=== PATIENT | female | born 1950 | race African-American/Black ===

== ENCOUNTER 2022-05-15 13:13 | Emergency (ER) | payer MEDICARE, OTHER ==
[2022-05-15] MEDS ORDERED: Acetaminophen 500 MG TAB ONE (14:22)
[2022-05-15 16:05] LABS: Hemoglobin 13.5 g/dL (12.0-16.0); Mean Corpuscular Hemoglobin 30.1 pg (27.0-31.0); Mean Platelet Volume 5.9 fL (7.4-10.4); Platelet Count 307 thou/uL (130-400); RBC Distribution Width 11.2 % (11.5-14.5); White Blood Cell (WBC) Count 6.4 thou/uL (4.8-10.8)
[2022-05-15 16:12] LABS: Actual Bicarbonate (HCO3v) 24 mEq/L (22-28); Analyzer IN Cardio ER; Base Excess -2.2 mEq/L (-2.0 to +3.0); Calcium, Ionized (venous) 1.08 mmol/L (1.16-1.32); Chloride (VBG) 103 mmol/L (98-106); Hemoglobin (Hb) 14.4 g/dL (11.7-16.1); Potassium (VBG) 3.98 mmol/L (3.70-5.30); Sodium 135.7 mmol/L (133-146); pH (venous) 7.35 (7.32-7.43)
[2022-05-15 16:16] LABS: ALT (SGPT) 11 U/L (8-55); AST (SGOT) 30 U/L (5-34); Albumin 3.4 g/dL (3.4-4.8); Alkaline Phosphatase 40 U/L (40-110); Anion Gap 14 mmol/L (10-20); BUN (Urea Nitrogen) 12 mg/dL (9.8-20.1); Bilirubin, Total 1.4 mg/dL (0.2-1.2); CK (CPK) 462 U/L (29-168); Calc. Creatinine Clearance 0 mL/min (70-130); Calcium 8.1 mg/dL (7.8-10.44); Carbon Dioxide 25 mmol/L (23-31); Chloride 105 mmol/L (98-107); Globulin 2.1 g/dL (2.4-3.5); Glucose 101 mg/dL (83-110); Protein, Total 5.5 g/dL (5.8-8.1); Sodium 140 mmol/L (136-145)
[2022-05-15 16:25] LABS: Band 7 % (5-11); Lymphocytes 12 % (21-51); MDiff Complete? YES; Monocytes 14 % (0-10); Neutrophil 59 % (42-75); Platelet Morphology Comment Appears Adequate; RBC Morphology Normal; Reactive Lymphocytes 8 % (0-10)
[2022-05-15 16:46] LABS: Bilirubin Negative (Negative); Blood, Urine Negative (Negative); Clarity Clear (Clear); Glucose, Urine (Dipstick) Normal (Negative); Ketone, Urine 40 mg/dL (Negative); Leukocyte 250 Leu/uL (Negative); Nitrite Negative (Negative); Protein, Urine (Dipstick) 20 mg/dL (Neg-Trace); RBC/HPF 0-3 HPF (0-3); Squamous Epithelial 0-3 HPF (0-3); Urobilinogen Normal mg/dL (Less than 2); pH, Urine 5.5 (5.0-9.0)
[2022-05-15 16:47] LABS: Bacteria/HPF 1+ HPF (None Seen)
[2022-05-15] MEDS ORDERED: cefTRIAXone\\ROCEPHIN 1 GM VIAL ONE (18:09)
== END 2022-05-15 19:19 | disposition home or self-care (01) ==
LOC: ERS 13:13
DX: R41.82 Altered mental status, unspecified (principal); N39.0 Urinary tract infection, site not specified; J12.9 Viral pneumonia, unspecified; R53.83 Other fatigue; R79.1 Abnormal coagulation profile; I10 Essential (primary) hypertension; E78.00 Pure hypercholesterolemia, unspecified; Z79.899 Other long term (current) drug therapy
CPT/HCPCS: 36415; 71045; 80053; 81003; 81015; 82550; 82805; 83605; 84484; 85025; 87040; 93005; 96361; 96374; J0696

== ENCOUNTER 2022-05-19 13:59 | Inpatient (IN) | payer MEDICARE, OTHER ==
[2022-05-19] MEDS ORDERED: Vancomycin 1 GM/200 ML BAG ONE ×2 (14:32→15:24)
[2022-05-19] MEDS ORDERED: Acetaminophen 500 MG TAB ONE ×3 (14:33→14:39)
[2022-05-19] MEDS ORDERED: Cefepime 2 GM VIAL ONE (14:33)
[2022-05-19 14:50] LABS: Mean Corpuscular Hemoglobin 29.7 pg (27.0-31.0); Mean Corpuscular Volume 92.6 fL (78.0-98.0); Platelet Count 369 thou/uL (130-400); RBC Distribution Width 11.5 % (11.5-14.5); Red Blood Cell (RBC) Count 4.71 mill/uL (4.20-5.40); White Blood Cell (WBC) Count 6.9 thou/uL (4.8-10.8)
[2022-05-19 14:56] LABS: INR-International Normal Ratio 1.1; PTT 33.4 sec (22.9-36.1)
[2022-05-19 15:04] LABS: MDiff Complete? YES
[2022-05-19 15:05] LABS: Band 5 % (5-11); Lymphocytes 13 % (21-51); Monocytes 20 % (0-10); Neutrophil 60 % (42-75); Platelet Morphology Comment Appears Adequate; RBC Morphology Normal; Reactive Lymphocytes 1 % (0-10)
[2022-05-19 15:07] LABS: Acetaminophen Less than 10.0 mcg/mL (10.0-30.0); Alcohol Less than 10 mg/dL (Less than 10); Salicylate Less than 8.0 mg/dL (15.0-30.0)
[2022-05-19 15:09] LABS: ALT (SGPT) 14 U/L (8-55); AST (SGOT) 38 U/L (5-34); Albumin 3.6 g/dL (3.4-4.8); Alkaline Phosphatase 47 U/L (40-110); Anion Gap 14 mmol/L (10-20); BUN (Urea Nitrogen) 11 mg/dL (9.8-20.1); Bilirubin, Total 1.7 mg/dL (0.2-1.2); Calc. Creatinine Clearance 0 mL/min (70-130); Calcium 8.6 mg/dL (7.8-10.44); Carbon Dioxide 27 mmol/L (23-31); Chloride 102 mmol/L (98-107); Estimated GFR 80; Globulin 1.9 g/dL (2.4-3.5); Glucose 96 mg/dL (83-110); Potassium 3.8 mmol/L (3.5-5.1); Protein, Total 5.5 g/dL (5.8-8.1); Sodium 139 mmol/L (136-145)
[2022-05-19 16:36] LABS: Amphetamine Not Detected (NotDetected); Barbiturates Screen Not Detected (NotDetected); Benzodiazepine Screen Not Detected (NotDetected); Cocaine Metabolite Screen Not Detected (NotDetected); Methadone Not Detected (NotDetected); Methamphetamine Not Detected (NotDetected); Opiate Screen Detected (NotDetected); Oxycodone Screen Not Detected (NotDetected); Phencyclidine (PCP) Not Detected (NotDetected); THC/Cannabinoid Screen Not Detected (NotDetected); Tricyclic Screen Not Detected (NotDetected)
[2022-05-19 16:40] LABS: Bacteria/HPF None Seen HPF (None Seen); Bilirubin Negative (Negative); Blood, Urine Negative (Negative); Clarity Clear (Clear); Glucose, Urine (Dipstick) Normal (Negative); Ketone, Urine 40 mg/dL (Negative); Leukocyte Negative Leu/uL (Negative); Nitrite Negative (Negative); Protein, Urine (Dipstick) 30 mg/dL (Neg-Trace); RBC/HPF 0-3 HPF (0-3); Specific Gravity, Urine 1.025 (1.002-1.036); Squamous Epithelial None Seen HPF (0-3); WBC/HPF 0-3 HPF (0-3)
[2022-05-19 21:09] LABS: SARS-CoV-2 NAA Rapid Test DETECTED (NotDetected)
[2022-05-19] MEDS ORDERED: Bisacodyl 5 MG TAB PO PRN (21:23)
[2022-05-19] MEDS ORDERED: Ondansetron PF 4 MG/2 ML Vial IVP PRN (21:23)
[2022-05-19] MEDS ORDERED: Zolpidem Tartrate 5 MG TAB PO PRN (21:23)
[2022-05-19] MEDS ORDERED: HYDROcodone/Acetaminophen 7.5/325 mg Tablet PO PRN (21:23)
[2022-05-19] MEDS ORDERED: Labetalol HCl 100 MG/20 ML VIAL SLOW IVP PRN (21:24)
[2022-05-19] MEDS ORDERED: Dexamethasone 4 MG TAB PO SCH (21:45)
[2022-05-19 22:13] VITALS: BMI 31.0
[2022-05-20] MEDS ORDERED: Cefepime 1 GM in Sodium Chloride 0.9% 100 ML IVPB SCH (02:00)
[2022-05-20 06:35] LABS: #Lymphocytes 0.8 thou/uL (1.20-3.40); #Monocytes 0.1 thou/uL (0.11-0.59); #Neutrophils 4.9 thou/uL (1.40-6.50); %Basophils 0.6 % (0.0-1.0); %Eosinophils 0.5 % (0.0-10.0); %Lymphocytes 14.3 % (21.0-51.0); %Monocytes 1.6 % (0.0-10.0); %Neutrophils 83.1 % (42.0-75.0); Hemoglobin 14.4 g/dL (12.0-16.0); Mean Corpuscular HGB CONC 32.5 g/dL (32.0-36.0); Mean Corpuscular Hemoglobin 29.9 pg (27.0-31.0); Mean Platelet Volume 6.1 fL (7.4-10.4); Platelet Count 390 thou/uL (130-400); RBC Distribution Width 11.4 % (11.5-14.5); Red Blood Cell (RBC) Count 4.81 mill/uL (4.20-5.40); White Blood Cell (WBC) Count 5.9 thou/uL (4.8-10.8)
[2022-05-20 06:59] LABS: ALT (SGPT) 13 U/L (8-55); AST (SGOT) 34 U/L (5-34); Albumin 3.3 g/dL (3.4-4.8); Alkaline Phosphatase 49 U/L (40-110); Anion Gap 16 mmol/L (10-20); BUN (Urea Nitrogen) 9 mg/dL (9.8-20.1); Bilirubin, Total 1.4 mg/dL (0.2-1.2); Calc. Creatinine Clearance 98 mL/min (70-130); Calcium 8.7 mg/dL (7.8-10.44); Carbon Dioxide 22 mmol/L (23-31); Chloride 107 mmol/L (98-107); Estimated GFR 91; Globulin 2.5 g/dL (2.4-3.5); Glucose 123 mg/dL (83-110); Potassium 3.7 mmol/L (3.5-5.1); Protein, Total 5.8 g/dL (5.8-8.1); Sodium 141 mmol/L (136-145)
[2022-05-20] MEDS: Enoxaparin Sodium 40 MG/0.4 ML SYRINGE SC SCH (09:07)
[2022-05-20] MEDS: Zinc Sulfate 220 MG CAP PO SCH (09:08)
[2022-05-20] MEDS: Dexamethasone 4 MG TAB PO SCH ×2 (09:08→17:55)
[2022-05-20] MEDS: Famotidine 20 MG TAB PO SCH ×2 (09:08→20:38)
[2022-05-20] MEDS ORDERED: Iopamidol-370 76% 500 ML 1 ML ONE (11:16)
[2022-05-20] MEDS ORDERED: Aspirin 81 mg Enteric Coated Tablet PO SCH (13:00)
[2022-05-20] MEDS: Cefepime 2 GM in Sodium Chloride 0.9% 100 ML IVPB SCH (15:23)
[2022-05-20] MEDS: Atorvastatin Calcium 40 MG TAB PO SCH (20:37)
[2022-05-21] MEDS: Cefepime 2 GM in Sodium Chloride 0.9% 100 ML IVPB SCH ×2 (02:27→14:03)
[2022-05-21 06:50] LABS: #Lymphocytes 0.9 thou/uL (1.20-3.40); #Monocytes 1.1 thou/uL (0.11-0.59); #Neutrophils 7.3 thou/uL (1.40-6.50); %Basophils 0.3 % (0.0-1.0); %Eosinophils 0.3 % (0.0-10.0); %Lymphocytes 9.4 % (21.0-51.0); %Monocytes 11.7 % (0.0-10.0); %Neutrophils 78.4 % (42.0-75.0); Hemoglobin 14.7 g/dL (12.0-16.0); Mean Corpuscular HGB CONC 32.7 g/dL (32.0-36.0); Mean Corpuscular Hemoglobin 30.1 pg (27.0-31.0); Mean Corpuscular Volume 91.9 fL (78.0-98.0); Mean Platelet Volume 6.1 fL (7.4-10.4); Platelet Count 430 thou/uL (130-400); RBC Distribution Width 11.3 % (11.5-14.5); Red Blood Cell (RBC) Count 4.89 mill/uL (4.20-5.40); White Blood Cell (WBC) Count 9.3 thou/uL (4.8-10.8)
[2022-05-21 07:15] LABS: Anion Gap 16 mmol/L (10-20); BUN (Urea Nitrogen) 14 mg/dL (9.8-20.1); Calc. Creatinine Clearance 100 mL/min (70-130); Carbon Dioxide 22 mmol/L (23-31); Cardiac Risk 6.6 (Less than 4.5); Chloride 108 mmol/L (98-107); Cholesterol 225 mg/dl (< 200 Desired); Estimated GFR 92; Glucose 158 mg/dL (83-110); HDL Cholesterol 34 mg/dL (>60 Neg Risk); LDL Cholesterol, Calculated 166 mg/dL; Potassium 3.7 mmol/L (3.5-5.1); Sodium 142 mmol/L (136-145); Triglycerides 125 mg/dL (Less than 150)
[2022-05-21] MEDS: Enoxaparin Sodium 40 MG/0.4 ML SYRINGE SC SCH (09:13)
[2022-05-21] MEDS: Aspirin 81 mg Enteric Coated Tablet PO SCH (09:13)
[2022-05-21] MEDS: Zinc Sulfate 220 MG CAP PO SCH (09:13)
[2022-05-21] MEDS: Dexamethasone 4 MG TAB PO SCH ×2 (09:13→18:03)
[2022-05-21] MEDS: Famotidine 20 MG TAB PO SCH ×3 (09:13→21:48)
[2022-05-21 11:01] LABS: Syphilis Antibody Nonreactive (Nonreactive); Syphilis Antibody Index 0.03 S/CO (<1.00 Non-Reactive)
[2022-05-21] MEDS: Atorvastatin Calcium 40 MG TAB PO SCH ×2 (21:41→21:49)
[2022-05-22] MEDS: Cefepime 2 GM in Sodium Chloride 0.9% 100 ML IVPB SCH ×2 (01:54→15:31)
[2022-05-22 06:54] LABS: #Lymphocytes 0.9 thou/uL (1.20-3.40); #Monocytes 1.5 thou/uL (0.11-0.59); #Neutrophils 8.6 thou/uL (1.40-6.50); %Eosinophils 0.4 % (0.0-10.0); %Lymphocytes 8.1 % (21.0-51.0); %Monocytes 13.8 % (0.0-10.0); %Neutrophils 77.7 % (42.0-75.0); Hemoglobin 14.4 g/dL (12.0-16.0); Mean Corpuscular HGB CONC 32.2 g/dL (32.0-36.0); Mean Corpuscular Hemoglobin 29.5 pg (27.0-31.0); Mean Corpuscular Volume 91.8 fL (78.0-98.0); Mean Platelet Volume 6.2 fL (7.4-10.4); Platelet Count 445 thou/uL (130-400); RBC Distribution Width 11.3 % (11.5-14.5); Red Blood Cell (RBC) Count 4.87 mill/uL (4.20-5.40)
[2022-05-22 07:12] LABS: Anion Gap 14 mmol/L (10-20); BUN (Urea Nitrogen) 23 mg/dL (9.8-20.1); CRP (Inflammatory) 3.56 mg/dL (= or < 0.5); Calc. Creatinine Clearance 85 mL/min (70-130); Calcium 8.4 mg/dL (7.8-10.44); Carbon Dioxide 26 mmol/L (23-31); Chloride 110 mmol/L (98-107); Estimated GFR 77; Glucose 121 mg/dL (83-110); Potassium 3.5 mmol/L (3.5-5.1); Sodium 146 mmol/L (136-145)
[2022-05-22] MEDS: Aspirin 81 mg Enteric Coated Tablet PO SCH (09:52)
[2022-05-22] MEDS: Famotidine 20 MG TAB PO SCH ×3 (09:52→23:15)
[2022-05-22] MEDS: Dexamethasone 4 MG TAB PO SCH ×3 (09:52→19:55)
[2022-05-22] MEDS: Zinc Sulfate 220 MG CAP PO SCH (09:53)
[2022-05-22] MEDS: Enoxaparin Sodium 40 MG/0.4 ML SYRINGE SC SCH (10:04)
[2022-05-22] MEDS: Atorvastatin Calcium 40 MG TAB PO SCH ×2 (22:50→23:15)
[2022-05-23] MEDS: Cefepime 2 GM in Sodium Chloride 0.9% 100 ML IVPB SCH ×2 (02:13→15:31)
[2022-05-23] MEDS: Enoxaparin Sodium 40 MG/0.4 ML SYRINGE SC SCH (09:48)
[2022-05-23] MEDS: Famotidine 20 MG TAB PO SCH ×3 (10:44→22:57)
[2022-05-23] MEDS: Dexamethasone 4 MG TAB PO SCH ×2 (10:44→17:27)
[2022-05-23] MEDS: Aspirin 81 mg Enteric Coated Tablet PO SCH (10:44)
[2022-05-23] MEDS: Zinc Sulfate 220 MG CAP PO SCH (10:45)
[2022-05-23] MEDS: Dextrose 5 %-0.45 % NaCl 1,000 ML IV SCH (12:15)
[2022-05-23 15:54] LABS: CSF, Glucose 60 mg/dl (40-70); CSF, Protein 29 mg/dL (15-40)
[2022-05-23 18:17] LABS: CSF RBC Count - Manual 29 /cu.mm (None Seen); CSF Source CSF; CSF WBC/NonHematics Count-Man 2 /cu.mm (0-5); Clarity Clear (Clear); Tube # 4
[2022-05-23] MEDS: Atorvastatin Calcium 40 MG TAB PO SCH ×2 (21:50→22:56)
[2022-05-23] MEDS: Dexamethasone 4 mg/ml Vial SLOW IVP SCH (21:51)
[2022-05-23] MEDS: Mirtazapine 30 MG TAB PO SCH ×2 (21:51→22:59)
[2022-05-24] MEDS: Cefepime 2 GM in Sodium Chloride 0.9% 100 ML IVPB SCH ×2 (02:17→13:31)
[2022-05-24] MEDS: Dextrose 5 %-0.45 % NaCl 1,000 ML IV SCH (06:08)
[2022-05-24 06:38] LABS: #Lymphocytes 0.8 thou/uL (1.20-3.40); #Monocytes 0.6 thou/uL (0.11-0.59); #Neutrophils 5.3 thou/uL (1.40-6.50); %Basophils 0.1 % (0.0-1.0); %Eosinophils 0.5 % (0.0-10.0); %Lymphocytes 11.4 % (21.0-51.0); %Monocytes 9.1 % (0.0-10.0); %Neutrophils 78.8 % (42.0-75.0); Hemoglobin 14.1 g/dL (12.0-16.0); Mean Corpuscular HGB CONC 31.2 g/dL (32.0-36.0); Mean Corpuscular Hemoglobin 29.9 pg (27.0-31.0); Mean Corpuscular Volume 95.9 fL (78.0-98.0); Mean Platelet Volume 6.3 fL (7.4-10.4); Platelet Count 352 thou/uL (130-400); RBC Distribution Width 11.5 % (11.5-14.5); Red Blood Cell (RBC) Count 4.71 mill/uL (4.20-5.40); White Blood Cell (WBC) Count 6.7 thou/uL (4.8-10.8)
[2022-05-24 06:51] LABS: Anion Gap 12 mmol/L (10-20); BUN (Urea Nitrogen) 15 mg/dL (9.8-20.1); CRP (Inflammatory) 6.19 mg/dL (= or < 0.5); Calc. Creatinine Clearance 104 mL/min (70-130); Calcium 8.3 mg/dL (7.8-10.44); Carbon Dioxide 24 mmol/L (23-31); Chloride 109 mmol/L (98-107); Estimated GFR 93; Glucose 153 mg/dL (83-110); Potassium 3.5 mmol/L (3.5-5.1); Sodium 141 mmol/L (136-145)
[2022-05-24] MEDS: Aspirin 81 mg Enteric Coated Tablet PO SCH (09:16)
[2022-05-24] MEDS: Famotidine 20 MG TAB PO SCH ×3 (09:17→23:12)
[2022-05-24] MEDS: Dexamethasone 4 mg/ml Vial SLOW IVP SCH ×2 (09:17→21:51)
[2022-05-24] MEDS: Zinc Sulfate 220 MG CAP PO SCH (09:17)
[2022-05-24] MEDS: Enoxaparin Sodium 40 MG/0.4 ML SYRINGE SC SCH (09:17)
[2022-05-24] MEDS: Mirtazapine 30 MG TAB PO SCH ×2 (21:51→23:07)
[2022-05-24] MEDS: Atorvastatin Calcium 40 MG TAB PO SCH ×2 (21:51→23:11)
[2022-05-25] MEDS: Cefepime 2 GM in Sodium Chloride 0.9% 100 ML IVPB SCH ×2 (02:16→15:48)
[2022-05-25] MEDS: Aspirin 81 mg Enteric Coated Tablet PO SCH (09:52)
[2022-05-25] MEDS: Famotidine 20 MG TAB PO SCH ×2 (09:53→21:22)
[2022-05-25] MEDS: Zinc Sulfate 220 MG CAP PO SCH (09:53)
[2022-05-25] MEDS: Enoxaparin Sodium 40 MG/0.4 ML SYRINGE SC SCH (09:54)
[2022-05-25] MEDS: Dexamethasone 4 mg/ml Vial SLOW IVP SCH ×2 (09:54→21:22)
[2022-05-25] MEDS: Mirtazapine 30 MG TAB PO SCH (21:22)
[2022-05-25] MEDS: Atorvastatin Calcium 40 MG TAB PO SCH (21:22)
[2022-05-26] MEDS: Cefepime 2 GM in Sodium Chloride 0.9% 100 ML IVPB SCH ×2 (02:09→13:41)
[2022-05-26] MEDS: Dexamethasone 4 mg/ml Vial SLOW IVP SCH ×2 (09:50→21:10)
[2022-05-26] MEDS: Zinc Sulfate 220 MG CAP PO SCH (09:50)
[2022-05-26] MEDS: Famotidine 20 MG TAB PO SCH ×2 (09:50→21:10)
[2022-05-26] MEDS: Enoxaparin Sodium 40 MG/0.4 ML SYRINGE SC SCH (09:50)
[2022-05-26] MEDS: Aspirin 81 mg Enteric Coated Tablet PO SCH (09:50)
[2022-05-26 16:55] LABS: Bacteria/HPF None Seen HPF (None Seen); Bilirubin Negative (Negative); Blood, Urine Negative (Negative); Clarity Clear (Clear); Glucose, Urine (Dipstick) Normal (Negative); Ketone, Urine Trace mg/dL (Negative); Leukocyte Negative Leu/uL (Negative); Nitrite Negative (Negative); Protein, Urine (Dipstick) 70 mg/dL (Neg-Trace); RBC/HPF 0-3 HPF (0-3); Specific Gravity, Urine 1.044 (1.002-1.036); Squamous Epithelial 0-3 HPF (0-3); WBC/HPF 0-3 HPF (0-3); pH, Urine 6.5 (5.0-9.0)
[2022-05-26] MEDS: Atorvastatin Calcium 40 MG TAB PO SCH (21:10)
[2022-05-26] MEDS: Mirtazapine 30 MG TAB PO SCH (21:10)
[2022-05-27] MEDS: Cefepime 2 GM in Sodium Chloride 0.9% 100 ML IVPB SCH (02:09)
[2022-05-27] MEDS: Famotidine 20 MG TAB PO SCH ×2 (08:56→21:58)
[2022-05-27] MEDS: Aspirin 81 mg Enteric Coated Tablet PO SCH (08:56)
[2022-05-27] MEDS: Zinc Sulfate 220 MG CAP PO SCH (08:56)
[2022-05-27] MEDS: Dexamethasone 4 mg/ml Vial SLOW IVP SCH (08:57)
[2022-05-27] MEDS: Enoxaparin Sodium 40 MG/0.4 ML SYRINGE SC SCH (08:57)
[2022-05-27] MEDS: Acyclovir Sodium 900 MG in Sodium Chloride 0.9% 250 ML 250 ML IVPB SCH ×2 (13:40→22:01)
[2022-05-27] MEDS ORDERED: Acyclovir Sodium 900 MG in Sodium Chloride 0.9% 100 ML IVPB SCH (14:00)
[2022-05-27] MEDS: Rosuvastatin 20 MG TAB PO SCH (21:58)
[2022-05-27] MEDS: Mirtazapine 30 MG TAB PO SCH (21:58)
[2022-05-27] MEDS: Acetaminophen 325 MG TAB PO PRN (21:58)
[2022-05-28] MEDS: Acyclovir Sodium 900 MG in Sodium Chloride 0.9% 250 ML 250 ML IVPB SCH ×3 (05:22→21:18)
[2022-05-28 06:34] LABS: Hemoglobin 13.7 g/dL (12.0-16.0); Mean Corpuscular HGB CONC 31.5 g/dL (32.0-36.0); Mean Corpuscular Hemoglobin 29.2 pg (27.0-31.0); Mean Corpuscular Volume 92.8 fL (78.0-98.0); Mean Platelet Volume 6.3 fL (7.4-10.4); Platelet Count 532 thou/uL (130-400); RBC Distribution Width 11.8 % (11.5-14.5); Red Blood Cell (RBC) Count 4.68 mill/uL (4.20-5.40); White Blood Cell (WBC) Count 19.1 thou/uL (4.8-10.8)
[2022-05-28 06:42] LABS: Anion Gap 12 mmol/L (10-20); BUN (Urea Nitrogen) 29 mg/dL (9.8-20.1); CRP (Inflammatory) 1.33 mg/dL (= or < 0.5); Calc. Creatinine Clearance 55 mL/min (70-130); Calcium 8.7 mg/dL (7.8-10.44); Carbon Dioxide 30 mmol/L (23-31); Chloride 108 mmol/L (98-107); Estimated GFR 46; Glucose 116 mg/dL (83-110); Potassium 3.6 mmol/L (3.5-5.1); Sodium 146 mmol/L (136-145)
[2022-05-28 08:16] LABS: Band 6 % (5-11); Eosinophils 1 % (0-10); Lymphocytes 7 % (21-51); MDiff Complete? YES; Metamyelocyte 1 % (0-0); Monocytes 4 % (0-10); Myelocyte 1 % (0-0); Neutrophil 69 % (42-75); Platelet Morphology Comment Appears Increased; RBC Morphology Normal; Reactive Lymphocytes 11 % (0-10)
[2022-05-28] MEDS: Famotidine 20 MG TAB PO SCH ×2 (09:26→21:17)
[2022-05-28] MEDS: Enoxaparin Sodium 40 MG/0.4 ML SYRINGE SC SCH (09:26)
[2022-05-28] MEDS: Aspirin 81 mg Enteric Coated Tablet PO SCH (09:26)
[2022-05-28] MEDS: Zinc Sulfate 220 MG CAP PO SCH (09:26)
[2022-05-28 16:36] LABS: Legionella Urinary Ag Negative (Negative); Strep pneumo Urine Ag NEGATIVE (NEGATIVE)
[2022-05-28] MEDS: Acetaminophen 325 MG TAB PO PRN (21:16)
[2022-05-28] MEDS: Rosuvastatin 20 MG TAB PO SCH (21:17)
[2022-05-28] MEDS: Mirtazapine 30 MG TAB PO SCH (21:29)
[2022-05-29 06:17] LABS: Band 10 % (5-11); Eosinophils 1 % (0-10); Hemoglobin 12.7 g/dL (12.0-16.0); Lymphocytes 6 % (21-51); MDiff Complete? YES; Mean Corpuscular Hemoglobin 29.6 pg (27.0-31.0); Mean Corpuscular Volume 95.5 fL (78.0-98.0); Mean Platelet Volume 6.5 fL (7.4-10.4); Monocytes 19 % (0-10); Neutrophil 64 % (42-75); Platelet Count 466 thou/uL (130-400); Platelet Morphology Comment Appears Adequate; RBC Distribution Width 12.1 % (11.5-14.5); RBC Morphology Normal; White Blood Cell (WBC) Count 14.6 thou/uL (4.8-10.8)
[2022-05-29] MEDS: Acyclovir Sodium 900 MG in Sodium Chloride 0.9% 250 ML 250 ML IVPB SCH (06:21)
[2022-05-29 06:44] LABS: Anion Gap 10 mmol/L (10-20); BUN (Urea Nitrogen) 28 mg/dL (9.8-20.1); CRP (Inflammatory) 4.32 mg/dL (= or < 0.5); Calc. Creatinine Clearance 64 mL/min (70-130); Calcium 8.7 mg/dL (7.8-10.44); Carbon Dioxide 28 mmol/L (23-31); Chloride 111 mmol/L (98-107); Estimated GFR 54; Glucose 112 mg/dL (83-110); Potassium 3.9 mmol/L (3.5-5.1); Sodium 145 mmol/L (136-145)
[2022-05-29] MEDS: Famotidine 20 MG TAB PO SCH ×2 (08:20→21:23)
[2022-05-29] MEDS: Enoxaparin Sodium 40 MG/0.4 ML SYRINGE SC SCH (08:20)
[2022-05-29] MEDS: Zinc Sulfate 220 MG CAP PO SCH (08:20)
[2022-05-29] MEDS: Aspirin 81 mg Enteric Coated Tablet PO SCH (08:20)
[2022-05-29] MEDS: Rosuvastatin 20 MG TAB PO SCH (21:23)
[2022-05-29] MEDS: Mirtazapine 30 MG TAB PO SCH (21:23)
[2022-05-29] MEDS: GUAIFENESIN SF SOLN 200 MG/10 ML UDCUP PO PRN (21:28)
[2022-05-30 05:23] LABS: Anion Gap 12 mmol/L (10-20); BUN (Urea Nitrogen) 23 mg/dL (9.8-20.1); CRP (Inflammatory) 3.09 mg/dL (= or < 0.5); Calc. Creatinine Clearance 65 mL/min (70-130); Calcium 8.7 mg/dL (7.8-10.44); Carbon Dioxide 28 mmol/L (23-31); Chloride 109 mmol/L (98-107); Estimated GFR 55; Glucose 131 mg/dL (83-110); Potassium 4.1 mmol/L (3.5-5.1); Sodium 145 mmol/L (136-145)
[2022-05-30 05:37] LABS: Band 10 % (5-11); Eosinophils 6 % (0-10); Hemoglobin 12.6 g/dL (12.0-16.0); Lymphocytes 19 % (21-51); MDiff Complete? YES; Mean Corpuscular HGB CONC 31.9 g/dL (32.0-36.0); Mean Corpuscular Hemoglobin 30.2 pg (27.0-31.0); Mean Corpuscular Volume 94.7 fL (78.0-98.0); Mean Platelet Volume 6.5 fL (7.4-10.4); Metamyelocyte 1 % (0-0); Monocytes 13 % (0-10); Myelocyte 3 % (0-0); Neutrophil 48 % (42-75); Platelet Count 462 thou/uL (130-400); Platelet Morphology Comment Appears Increased; RBC Morphology Normal; Red Blood Cell (RBC) Count 4.15 mill/uL (4.20-5.40); White Blood Cell (WBC) Count 13.6 thou/uL (4.8-10.8)
[2022-05-30] MEDS: Zinc Sulfate 220 MG CAP PO SCH (09:31)
[2022-05-30] MEDS: Aspirin 81 mg Enteric Coated Tablet PO SCH (09:31)
[2022-05-30] MEDS: Enoxaparin Sodium 40 MG/0.4 ML SYRINGE SC SCH (09:31)
[2022-05-30] MEDS: Famotidine 20 MG TAB PO SCH ×2 (09:31→21:51)
[2022-05-30] MEDS ORDERED: Multivit, Adult Inj 10 ML VIAL IV SCH (16:00)
[2022-05-30] MEDS ORDERED: Multivitamins, Adult 10 ML in Sodium Chloride 0.9% 1,000 ML IV SCH ×2 (16:45→18:00)
[2022-05-30] MEDS: Rosuvastatin 20 MG TAB PO SCH (21:51)
[2022-05-30] MEDS: Mirtazapine 30 MG TAB PO SCH (21:51)
[2022-05-31] MEDS: GUAIFENESIN SF SOLN 200 MG/10 ML UDCUP PO PRN (02:21)
[2022-05-31] MEDS: Famotidine 20 MG TAB PO SCH ×2 (09:13→21:50)
[2022-05-31] MEDS: Zinc Sulfate 220 MG CAP PO SCH (09:13)
[2022-05-31] MEDS: Enoxaparin Sodium 40 MG/0.4 ML SYRINGE SC SCH (09:13)
[2022-05-31] MEDS: Aspirin 81 mg Enteric Coated Tablet PO SCH (09:13)
[2022-05-31] MEDS: Mirtazapine 30 MG TAB PO SCH (21:50)
[2022-05-31] MEDS: Rosuvastatin 20 MG TAB PO SCH (21:50)
[2022-06-01 07:12] LABS: Hemoglobin 13.2 g/dL (12.0-16.0); Mean Corpuscular HGB CONC 32.7 g/dL (32.0-36.0); Mean Corpuscular Hemoglobin 30.5 pg (27.0-31.0); Mean Corpuscular Volume 93.1 fL (78.0-98.0); Mean Platelet Volume 6.7 fL (7.4-10.4); Platelet Count 466 thou/uL (130-400); RBC Distribution Width 12.2 % (11.5-14.5); Red Blood Cell (RBC) Count 4.32 mill/uL (4.20-5.40)
[2022-06-01 07:18] LABS: ALT (SGPT) 23 U/L (8-55); AST (SGOT) 29 U/L (5-34); Albumin 2.9 g/dL (3.4-4.8); Alkaline Phosphatase 53 U/L (40-110); Anion Gap 12 mmol/L (10-20); BUN (Urea Nitrogen) 21 mg/dL (9.8-20.1); Bilirubin, Total 1.1 mg/dL (0.2-1.2); Calc. Creatinine Clearance 73 mL/min (70-130); Carbon Dioxide 29 mmol/L (23-31); Chloride 107 mmol/L (98-107); Estimated GFR 64; Globulin 2.3 g/dL (2.4-3.5); Glucose 108 mg/dL (83-110); Potassium 4.2 mmol/L (3.5-5.1); Protein, Total 5.2 g/dL (5.8-8.1); Sodium 144 mmol/L (136-145)
[2022-06-01 07:20] LABS: Prothrombin Time 13.5 sec (12.0-14.7)
[2022-06-01] MEDS: Famotidine 20 MG TAB PO SCH ×2 (07:22→20:33)
[2022-06-01] MEDS: Zinc Sulfate 220 MG CAP PO SCH (07:22)
[2022-06-01] MEDS: Aspirin 81 mg Enteric Coated Tablet PO SCH (07:22)
[2022-06-01 08:10] LABS: Band 5 % (5-11); Eosinophils 2 % (0-10); Lymphocytes 15 % (21-51); MDiff Complete? YES; Monocytes 7 % (0-10); Neutrophil 49 % (42-75); Platelet Morphology Comment Appears Increased; RBC Morphology Normal; Reactive Lymphocytes 22 % (0-10)
[2022-06-01 08:33] LABS: Hemoglobin A1c 5.2 % (4.0-6.0)
[2022-06-01] MEDS ORDERED: Sodium Chloride 0.9% 100 ML ONE (09:23)
[2022-06-01] MEDS ORDERED: CEFAZOLIN 2 GM VIAL ONE (09:23)
[2022-06-01] MEDS ORDERED: Lidocaine 1% PF 5 ML VIAL ONE (09:28)
[2022-06-01] MEDS ORDERED: PROPOFOL 200 MG/20 ML VIAL ONE (09:28)
[2022-06-01] MEDS ORDERED: Sodium Chloride 0.9% 1,000 ML IV SCH (18:30)
[2022-06-01] MEDS: Mirtazapine 30 MG TAB PO SCH (20:33)
[2022-06-01] MEDS: Rosuvastatin 20 MG TAB PO SCH (20:33)
[2022-06-01] MEDS: Famotidine/PF 20 mg/2ml Vial SLOW IVP SCH (20:34)
[2022-06-02 06:38] LABS: ALT (SGPT) 17 U/L (8-55); AST (SGOT) 23 U/L (5-34); Albumin 2.8 g/dL (3.4-4.8); Alkaline Phosphatase 50 U/L (40-110); Anion Gap 13 mmol/L (10-20); BUN (Urea Nitrogen) 25 mg/dL (9.8-20.1); Bilirubin, Total 1.1 mg/dL (0.2-1.2); Calc. Creatinine Clearance 73 mL/min (70-130); Carbon Dioxide 26 mmol/L (23-31); Cardiac Risk 4.8 (Less than 4.5); Chloride 112 mmol/L (98-107); Cholesterol 163 mg/dl (< 200 Desired); Estimated GFR 63; Globulin 2.3 g/dL (2.4-3.5); Glucose 94 mg/dL (83-110); HDL Cholesterol 34 mg/dL (>60 Neg Risk); LDL Cholesterol, Calculated 109 mg/dL; Magnesium 2.4 mg/dL (1.6-2.6); Potassium 4.2 mmol/L (3.5-5.1); Protein, Total 5.1 g/dL (5.8-8.1); Sodium 147 mmol/L (136-145); Triglycerides 101 mg/dL (Less than 150)
[2022-06-02 07:17] LABS: Hemoglobin 12.1 g/dL (12.0-16.0); Mean Corpuscular HGB CONC 32.1 g/dL (32.0-36.0); Mean Corpuscular Hemoglobin 29.8 pg (27.0-31.0); Mean Corpuscular Volume 92.6 fL (78.0-98.0); Mean Platelet Volume 6.5 fL (7.4-10.4); Platelet Count 394 thou/uL (130-400); RBC Distribution Width 12.8 % (11.5-14.5); Red Blood Cell (RBC) Count 4.06 mill/uL (4.20-5.40); White Blood Cell (WBC) Count 11.9 thou/uL (4.8-10.8)
[2022-06-02] MEDS: Aspirin 81 mg Enteric Coated Tablet PO SCH (07:27)
[2022-06-02] MEDS: Famotidine 20 MG TAB PO SCH (07:27)
[2022-06-02] MEDS: Zinc Sulfate 220 MG CAP PO SCH (07:28)
[2022-06-02] MEDS: Famotidine/PF 20 mg/2ml Vial SLOW IVP SCH (08:00)
[2022-06-02 08:35] LABS: Band 5 % (5-11); Eosinophils 4 % (0-10); Lymphocytes 17 % (21-51); MDiff Complete? YES; Metamyelocyte 1 % (0-0); Monocytes 19 % (0-10); Neutrophil 54 % (42-75); Platelet Morphology Comment Appears Adequate; RBC Morphology Normal
[2022-06-02] MEDS ORDERED: CEFAZOLIN 2 GM VIAL ONE (11:22)
[2022-06-02] MEDS ORDERED: Sodium Chloride 0.9% 100 ML ONE (11:22)
[2022-06-02] MEDS ORDERED: Dexamethasone 20 MG/5 ML VIAL ONE (11:34)
[2022-06-02] MEDS ORDERED: Succinylcholine 200 MG/10 ml SYRINGE FS ONE (11:34)
[2022-06-02] MEDS ORDERED: Rocuronium Bromide 10 MG/ML (10ML VIAL) ONE (11:34)
[2022-06-02] MEDS ORDERED: Ondansetron PF 4 MG/2 ML Vial ONE (11:34)
[2022-06-02] MEDS ORDERED: Lidocaine 1% PF 5 ML VIAL ONE (11:34)
[2022-06-02] MEDS ORDERED: PROPOFOL 200 MG/20 ML VIAL ONE (11:34)
[2022-06-02] MEDS ORDERED: Promethazine HCl 25 MG/ML VIAL IVPB PRN (12:29)
[2022-06-02] MEDS ORDERED: GUAIFENESIN SF SOLN 200 MG/10 ML UDCUP PER TUBE PRN (19:52)
[2022-06-02] MEDS: Mirtazapine 30 MG TAB PO SCH (20:20)
[2022-06-02] MEDS: Rosuvastatin 20 MG TAB PO SCH (20:20)
[2022-06-02] MEDS: levETIRAcetam 500 mg/5 ml Oral Solution PER TUBE SCH (20:21)
[2022-06-02] MEDS: Mirtazapine 30 MG TAB PER TUBE SCH (20:23)
[2022-06-02] MEDS ORDERED: Rosuvastatin 20 MG TAB PER TUBE SCH (21:00)
[2022-06-02] MEDS ORDERED: levETIRAcetam 500 MG TAB PO SCH (21:00)
[2022-06-03 06:09] LABS: #Eosinphils 0.1 thou/uL (0.0-0.7); #Lymphocytes 1.4 thou/uL (1.20-3.40); #Monocytes 2.1 thou/uL (0.11-0.59); #Neutrophils 13.8 thou/uL (1.40-6.50); %Basophils 0.1 % (0.0-1.0); %Eosinophils 0.3 % (0.0-10.0); %Lymphocytes 7.8 % (21.0-51.0); %Monocytes 12.1 % (0.0-10.0); %Neutrophils 79.7 % (42.0-75.0); Hemoglobin 11.4 g/dL (12.0-16.0); Mean Corpuscular HGB CONC 31.8 g/dL (32.0-36.0); Mean Corpuscular Hemoglobin 29.6 pg (27.0-31.0); Mean Corpuscular Volume 93.1 fL (78.0-98.0); Mean Platelet Volume 6.8 fL (7.4-10.4); Platelet Count 369 thou/uL (130-400); RBC Distribution Width 12.8 % (11.5-14.5); Red Blood Cell (RBC) Count 3.84 mill/uL (4.20-5.40); White Blood Cell (WBC) Count 17.3 thou/uL (4.8-10.8)
[2022-06-03 06:20] LABS: ALT (SGPT) 19 U/L (8-55); AST (SGOT) 27 U/L (5-34); Albumin 2.8 g/dL (3.4-4.8); Alkaline Phosphatase 58 U/L (40-110); Anion Gap 13 mmol/L (10-20); BUN (Urea Nitrogen) 27 mg/dL (9.8-20.1); Bilirubin, Total 0.7 mg/dL (0.2-1.2); Calc. Creatinine Clearance 77 mL/min (70-130); Calcium 8.8 mg/dL (7.8-10.44); Carbon Dioxide 22 mmol/L (23-31); Chloride 113 mmol/L (98-107); Estimated GFR 68; Globulin 2.3 g/dL (2.4-3.5); Glucose 161 mg/dL (83-110); Magnesium 2.4 mg/dL (1.6-2.6); Potassium 4.3 mmol/L (3.5-5.1); Protein, Total 5.1 g/dL (5.8-8.1); Sodium 144 mmol/L (136-145)
[2022-06-03] MEDS: levETIRAcetam 500 mg/5 ml Oral Solution PER TUBE SCH (09:08)
[2022-06-03] MEDS: Aspirin Chewable 81 MG TAB PER TUBE SCH (09:08)
[2022-06-03] MEDS: Zinc Sulfate 220 MG CAP PER TUBE SCH (09:08)
[2022-06-03] MEDS: Pantoprazole 40 MG VIAL IVP SCH (09:10)
[2022-06-03] MEDS: Acetaminophen 650 MG/20.3 ML UDCUP PER TUBE PRN (15:53)
[2022-06-03] MEDS ORDERED: Carvedilol 3.125 MG TAB PO SCH (17:00)
[2022-06-03] MEDS ORDERED: Carvedilol 3.125 MG TAB PER TUBE SCH (19:45)
[2022-06-03] MEDS: Mirtazapine 30 MG TAB PER TUBE SCH (20:35)
[2022-06-03] MEDS: levETIRAcetam 500 MG/5 ML VIAL SLOW IVP SCH (20:36)
[2022-06-03] MEDS: Atorvastatin Calcium 20 MG TAB PER TUBE SCH (20:36)
[2022-06-04] MEDS: Acetaminophen 650 MG/20.3 ML UDCUP PER TUBE PRN ×2 (05:15→22:17)
[2022-06-04 06:48] LABS: #Eosinphils 0.4 thou/uL (0.0-0.7); #Lymphocytes 1.7 thou/uL (1.20-3.40); #Monocytes 1.8 thou/uL (0.11-0.59); #Neutrophils 10.1 thou/uL (1.40-6.50); %Basophils 0.2 % (0.0-1.0); %Eosinophils 3.2 % (0.0-10.0); %Lymphocytes 11.8 % (21.0-51.0); %Monocytes 12.8 % (0.0-10.0); %Neutrophils 72.1 % (42.0-75.0); Hemoglobin 12.2 g/dL (12.0-16.0); Mean Corpuscular HGB CONC 31.9 g/dL (32.0-36.0); Mean Corpuscular Hemoglobin 30.1 pg (27.0-31.0); Mean Corpuscular Volume 94.5 fL (78.0-98.0); Mean Platelet Volume 6.8 fL (7.4-10.4); Platelet Count 366 thou/uL (130-400); RBC Distribution Width 13.2 % (11.5-14.5); Red Blood Cell (RBC) Count 4.04 mill/uL (4.20-5.40)
[2022-06-04 07:19] LABS: ALT (SGPT) 19 U/L (8-55); AST (SGOT) 24 U/L (5-34); Alkaline Phosphatase 63 U/L (40-110); Anion Gap 16 mmol/L (10-20); BUN (Urea Nitrogen) 22 mg/dL (9.8-20.1); Bilirubin, Total 0.7 mg/dL (0.2-1.2); Calc. Creatinine Clearance 91 mL/min (70-130); Calcium 8.9 mg/dL (7.8-10.44); Carbon Dioxide 23 mmol/L (23-31); Chloride 112 mmol/L (98-107); Estimated GFR 83; Globulin 2.2 g/dL (2.4-3.5); Glucose 137 mg/dL (83-110); Magnesium 2.1 mg/dL (1.6-2.6); Potassium 3.6 mmol/L (3.5-5.1); Protein, Total 5.2 g/dL (5.8-8.1); Sodium 147 mmol/L (136-145)
[2022-06-04] MEDS: levETIRAcetam 500 MG/5 ML VIAL SLOW IVP SCH ×2 (08:50→20:33)
[2022-06-04] MEDS: Aspirin Chewable 81 MG TAB PER TUBE SCH (08:51)
[2022-06-04] MEDS: Zinc Sulfate 220 MG CAP PER TUBE SCH (08:51)
[2022-06-04] MEDS: Pantoprazole 40 MG VIAL IVP SCH (08:53)
[2022-06-04] MEDS: Carvedilol 3.125 MG TAB PER TUBE SCH ×2 (08:53→16:27)
[2022-06-04] MEDS ORDERED: Enoxaparin Sodium 40 MG/0.4 ML SYRINGE SC SCH (10:15)
[2022-06-04] MEDS: Atorvastatin Calcium 20 MG TAB PER TUBE SCH (20:32)
[2022-06-04] MEDS: Mirtazapine 30 MG TAB PER TUBE SCH (20:33)
[2022-06-05 06:09] LABS: #Eosinphils 0.4 thou/uL (0.0-0.7); #Lymphocytes 1.9 thou/uL (1.20-3.40); #Monocytes 1.5 thou/uL (0.11-0.59); #Neutrophils 6.1 thou/uL (1.40-6.50); %Eosinophils 4.1 % (0.0-10.0); %Lymphocytes 18.9 % (21.0-51.0); %Monocytes 14.9 % (0.0-10.0); Hemoglobin 12.5 g/dL (12.0-16.0); Mean Corpuscular HGB CONC 32.3 g/dL (32.0-36.0); Mean Corpuscular Hemoglobin 30.5 pg (27.0-31.0); Mean Corpuscular Volume 94.3 fL (78.0-98.0); Mean Platelet Volume 6.7 fL (7.4-10.4); Platelet Count 346 thou/uL (130-400); RBC Distribution Width 12.9 % (11.5-14.5); Red Blood Cell (RBC) Count 4.09 mill/uL (4.20-5.40); White Blood Cell (WBC) Count 9.9 thou/uL (4.8-10.8)
[2022-06-05 06:26] LABS: ALT (SGPT) 22 U/L (8-55); AST (SGOT) 32 U/L (5-34); Albumin 2.8 g/dL (3.4-4.8); Alkaline Phosphatase 64 U/L (40-110); Anion Gap 17 mmol/L (10-20); BUN (Urea Nitrogen) 18 mg/dL (9.8-20.1); Bilirubin, Total 0.6 mg/dL (0.2-1.2); Calc. Creatinine Clearance 93 mL/min (70-130); Calcium 8.7 mg/dL (7.8-10.44); Carbon Dioxide 21 mmol/L (23-31); Chloride 111 mmol/L (98-107); Estimated GFR 85; Globulin 2.5 g/dL (2.4-3.5); Glucose 113 mg/dL (83-110); Magnesium 2.1 mg/dL (1.6-2.6); Potassium 4.2 mmol/L (3.5-5.1); Protein, Total 5.3 g/dL (5.8-8.1); Sodium 145 mmol/L (136-145)
[2022-06-05] MEDS: levETIRAcetam 500 MG/5 ML VIAL SLOW IVP SCH (08:34)
[2022-06-05] MEDS: Aspirin Chewable 81 MG TAB PER TUBE SCH (08:36)
[2022-06-05] MEDS: Zinc Sulfate 220 MG CAP PER TUBE SCH (08:36)
[2022-06-05] MEDS: Carvedilol 3.125 MG TAB PER TUBE SCH ×2 (08:36→16:19)
[2022-06-05] MEDS: Pantoprazole 40 MG VIAL IVP SCH (08:37)
[2022-06-05] MEDS ORDERED: Enoxaparin Sodium 40 MG/0.4 ML SYRINGE SC SCH (09:00)
[2022-06-05] MEDS ORDERED: Polyethylene Glycol 3350 17 GM Packet PER TUBE SCH (09:00)
[2022-06-05 18:28] VITALS: BP 138/82; TEMP 98
== END 2022-06-05 18:23 | disposition swing bed (61) | DRG 177 ==
LOC: ERS 13:59 → T4-B 17:41
PROVIDERS: ADMIT Family Medicine; ATTEND Family Medicine
PROC: 3E03329 Introduction of Other Anti-infective into Peripheral Vein, Percutaneous Approach (ICD-10-PCS; principal; 2022-05-19)
PROC: 8E0ZXY6 Isolation (ICD-10-PCS; 2022-05-19)
PROC: 009U3ZX Drainage of Spinal Canal, Percutaneous Approach, Diagnostic (ICD-10-PCS; 2022-05-23)
PROC: B01BZZZ Fluoroscopy of Spinal Cord (ICD-10-PCS; 2022-05-23)
PROC: 0D9670Z Drainage of Stomach with Drainage Device, Via Natural or Artificial Opening (ICD-10-PCS; 2022-05-28)
PROC: 3E0G76Z Introduction of Nutritional Substance into Upper GI, Via Natural or Artificial Opening (ICD-10-PCS; 2022-05-28)
PROC: 0DC38ZZ Extirpation of Matter from Lower Esophagus, Via Natural or Artificial Opening Endoscopic (ICD-10-PCS; 2022-06-01)
PROC: 0DB58ZX Excision of Esophagus, Via Natural or Artificial Opening Endoscopic, Diagnostic (ICD-10-PCS; 2022-06-02)
PROC: 0DH63UZ Insertion of Feeding Device into Stomach, Percutaneous Approach (ICD-10-PCS; 2022-06-02)
DX: U07.1 COVID-19 (principal); J96.01 Acute respiratory failure with hypoxia; G93.41 Metabolic encephalopathy; J12.82 Pneumonia due to coronavirus disease 2019; N17.9 Acute kidney failure, unspecified; I42.9 Cardiomyopathy, unspecified; I50.22 Chronic systolic (congestive) heart failure; U09.9 Post COVID-19 condition, unspecified; E78.00 Pure hypercholesterolemia, unspecified; R13.12 Dysphagia, oropharyngeal phase; T18.128A Food in esophagus causing other injury, initial encounter; R62.7 Adult failure to thrive; F03.90 Unspecified dementia, unspecified severity, without behavioral disturbance, psychotic disturbance, mood disturbance, and anxiety; E86.0 Dehydration; K21.00 Gastro-esophageal reflux disease with esophagitis, without bleeding; K44.9 Diaphragmatic hernia without obstruction or gangrene; I11.0 Hypertensive heart disease with heart failure; Z90.09 Acquired absence of other part of head and neck; Z91.14 Patient's other noncompliance with medication regimen; Z79.899 Other long term (current) drug therapy; Z68.31 Body mass index [BMI] 31.0-31.9, adult
CPT/HCPCS: 36415; 36416; 51701; 62270; 70450; 70496; 70498; 70551; 71045; 71250; 74018; 80048; 80053; 80061; 80306; 80307; 81003; 81015; 82140; 82607; 82746; 82945; 83036; 83090; 83605; 83735; 84145; 84157; 84443; 84484; 85025; 85610; 85730; 86140; 86780; 87040; 87086; 87449; 87529; 87899; 88305; 88312; 88313; 89051; 93005; 93010; 93306; 94760; 95816; 95819; 95957; 96365; 96367; C9113; J0133; J0690; J0692; J1100; J1650; J1953; J2405; J2704; J3370; J3411; J3490; J7042; J7050; J8540; Q9967; S0028; U0002

== ENCOUNTER 2022-07-04 16:07 | Emergency (ER) | payer MEDICARE, OTHER | END 2022-07-04 17:35 | disposition home or self-care (01) | LOC: ERS 16:07 | DX: K94.23 Gastrostomy malfunction (principal); E78.00 Pure hypercholesterolemia, unspecified; I10 Essential (primary) hypertension; Z79.899 Other long term (current) drug therapy | CPT/HCPCS: 99282 ==

== ENCOUNTER 2022-08-14 13:06 | Outpatient (CLI) | payer MEDICARE, OTHER ==
[~2022-08-14 13:06] MED LIST: Magnevist 469MG/ML 20 ML VIAL ONE
== END 2022-08-14 13:07 | disposition home or self-care (01) ==
LOC: BICMRI 13:06
PROVIDERS: ATTEND Psychiatry & Neurology Neurology
DX: G93.41 Metabolic encephalopathy (principal); R90.82 White matter disease, unspecified
CPT/HCPCS: 70553; 95816; 95957; A9579

== ENCOUNTER 2022-11-25 11:37 | Outpatient (CLI) | payer MEDICARE, OTHER | END 2022-11-25 11:38 | disposition home or self-care (01) | LOC: BICRAD 11:37 | PROVIDERS: ATTEND Nurse Practitioner Family | DX: M25.511 Pain in right shoulder (principal) ==

== ENCOUNTER 2023-02-22 11:20 | Outpatient (CLI) | payer MEDICARE | END 2023-02-22 11:21 | disposition home or self-care (01) | LOC: BICCT 11:20 | PROVIDERS: ATTEND Nurse Practitioner Family | DX: R59.0 Localized enlarged lymph nodes (principal) | CPT/HCPCS: 70498; 82565 ==

== ENCOUNTER 2023-03-16 12:30 | Outpatient (CLI) | payer MEDICARE, OTHER | END 2023-03-16 12:31 | disposition home or self-care (01) | LOC: PET 12:30 | PROVIDERS: ATTEND Psychiatry & Neurology Neurology | DX: G30.9 Alzheimer's disease, unspecified (principal) | CPT/HCPCS: 78803; A9552 ==

== ENCOUNTER 2023-10-25 10:01 | Outpatient (CLI) | payer MEDICARE, OTHER | END 2023-10-25 10:02 | disposition home or self-care (01) | LOC: BICMRI 10:01 | PROVIDERS: ATTEND Nurse Practitioner Family | DX: M25.562 Pain in left knee (principal); S83.242A Other tear of medial meniscus, current injury, left knee, initial encounter; M94.262 Chondromalacia, left knee; M25.462 Effusion, left knee; M71.862 Other specified bursopathies, left knee ==

== ENCOUNTER 2024-04-13 07:48 | Outpatient (CLI) | payer MEDICARE, OTHER | END 2024-04-13 07:49 | disposition home or self-care (01) | LOC: BICMAMMO 07:48 | PROVIDERS: ATTEND Nurse Practitioner Family | DX: N64.89 Other specified disorders of breast (principal); N63.15 Unspecified lump in the right breast, overlapping quadrants | CPT/HCPCS: 76642; 77065; G0279 ==

== ENCOUNTER 2024-05-04 00:10 | Emergency (ER) | payer MEDICARE, OTHER ==
[2024-05-04] MEDS ORDERED: Acetaminophen 500 MG TAB ONE (00:26)
[2024-05-04] MEDS ORDERED: Acetaminophen 650 MG/20.3 ML UDCUP ONE (00:28)
[2024-05-04 00:41] LABS: #Basophils 0.04 10x3/uL (0.0-0.2); %Basophils 0.5 % (0.0-1.0); %Eosinophils 2.3 % (0.0-10.0); %Lymphocytes 15.3 % (21.0-51.0); %Monocytes 18.9 % (0.0-10.0); %Neutrophils 62.5 % (42.0-75.0); Hematocrit 41.3 % (36.0-47.0); Hemoglobin 13.6 g/dL (12.0-16.0); Mean Corpuscular HGB CONC 32.9 g/dL (32.0-36.0); Mean Corpuscular Hemoglobin 29.4 pg (27.0-31.0); Mean Corpuscular Volume 89.2 fL (78.0-98.0); Mean Platelet Volume 8.6 fL (7.4-10.4); Platelet Count 263 10x3/uL (130-400); RBC Distribution Width 13.2 % (11.5-14.5); Red Blood Cell (RBC) Count 4.63 mill/uL (4.20-5.40)
[2024-05-04] MEDS ORDERED: Ondansetron ODT 4 MG TAB ONE (00:45)
[2024-05-04 00:51] LABS: ALT (SGPT) 8 U/L (8-55); AST (SGOT) 23 U/L (5-34); Alkaline Phosphatase 67 U/L (40-110); Anion Gap 12 mmol/L (10-20); BUN (Urea Nitrogen) 12 mg/dL (9.8-20.1); Bilirubin, Total 1.1 mg/dL (0.2-1.2); Calc. Creatinine Clearance 0 mL/min (70-130); Calcium 9.3 mg/dL (7.8-10.44); Carbon Dioxide 24 mmol/L (23-31); Chloride 108 mmol/L (98-107); Estimated GFR 57; Globulin 2.2 g/dL (2.4-3.5); Glucose 96 mg/dL (83-110); Potassium 4.1 mmol/L (3.5-5.1); Protein, Total 6.2 g/dL (5.8-8.1); Sodium 140 mmol/L (136-145)
[2024-05-04 01:47] LABS: Influenza A by NAA Not Detected (NotDetected); Influenza B by NAA Not Detected (NotDetected); SARS-CoV-2 NAA Rapid Test DETECTED (NotDetected)
== END 2024-05-04 02:23 | disposition home or self-care (01) ==
LOC: ERS 00:10
DX: U07.1 COVID-19 (principal)
CPT/HCPCS: 0240U; 71045; 80053; 83605; 83880; 84484; 85025; 87040; 87081; 87430; Q0162; 36415

== ENCOUNTER → 2024-05-11 | Day surgery (SDC) | payer MEDICARE, OTHER | LOC: BICULT 12:21 | PROVIDERS: ATTEND Nurse Practitioner Family | PROC: 0H9T3ZX Drainage of Right Breast, Percutaneous Approach, Diagnostic (ICD-10-PCS; principal; 2024-05-11) | DX: N64.2 Atrophy of breast (principal) | CPT/HCPCS: 19083; 88305 ==

== ENCOUNTER 2024-09-01 09:09 | Outpatient (CLI) | payer MEDICARE, OTHER | END 2024-09-01 09:10 | disposition home or self-care (01) | LOC: ULT 09:09 | PROVIDERS: ATTEND Nurse Practitioner Family | DX: K45.8 Other specified abdominal hernia without obstruction or gangrene (principal) | CPT/HCPCS: 76700 ==

== ENCOUNTER 2024-09-22 07:41 | Outpatient (CLI) | payer MEDICARE, OTHER ==
[2024-09-22] MEDS ORDERED: Iopamidol 370 76% 100 ML VIAL ONE (14:15)
== END 2024-09-22 07:42 | disposition home or self-care (01) ==
LOC: BICCT 07:41
PROVIDERS: ATTEND Internal Medicine
DX: R59.0 Localized enlarged lymph nodes (principal); K43.9 Ventral hernia without obstruction or gangrene; K42.9 Umbilical hernia without obstruction or gangrene; R60.0 Localized edema; R19.04 Left lower quadrant abdominal swelling, mass and lump; R19.02 Left upper quadrant abdominal swelling, mass and lump
CPT/HCPCS: 74177; 82565; Q9967